=== PATIENT | male | born 1965 | race Caucasian/White ===

== ENCOUNTER 2017-07-17 01:46 | Inpatient (IN) | payer BC ==
[~2017-07-17] VITALS: Ht 172.7 cm; Wt 86.2 kg
[2017-07-17] VITALS (8 sets, daily range): BP systolic 100–128; BP diastolic 62–69; Ht 172.7 cm; Wt 86.2 kg
[2017-07-17 03:56] LABS: BASOPHIL % 0.5 % (0-2); PLATELET COUNT 251 x10^3mcL (130-400); RED CELL DISTRIBUTION WIDTH 13.2 % (11.5-14.5)
[2017-07-17 04:03] LABS: CALCIUM 8.5 mg/dL (8.5-10.1); CARBON DIOXIDE 16.3 mmol/L (21-32); CREATININE SERUM 1.6 mg/dL (0.7-1.3)
[2017-07-17 04:07] LABS: BILIRUBIN TOTAL 0.6 mg/dL (0.20-1.00)
[2017-07-17 04:13] LABS: ALBUMIN 3.2 g/dL (3.4-5.0)
[2017-07-17] MEDS ORDERED: INVOKANA300 MG PO (05:30)
[2017-07-17] MEDS ORDERED: EFFIENT10 M2 PO (05:30)
[2017-07-17] MEDS ORDERED: FLUDROCORTISON0.1 MG PO (05:31)
[2017-07-17] MEDS ORDERED: TOPROL XL25 MG PO (05:31)
[2017-07-17] MEDS ORDERED: ZETIA10 M1 PO (05:31)
[2017-07-17] MEDS ORDERED: IMITREX50 MG PO (05:32)
[2017-07-17] MEDS ORDERED: TOPAMAX25 MG PO ×2 (05:32→05:33)
[2017-07-17] MEDS ORDERED: HUMALOG100 U/ML SC (05:33)
[2017-07-17] MEDS ORDERED: LIPITOR80 MG PO (05:34)
[2017-07-17] MEDS ORDERED: CIALIS5 M1 PO (05:34)
[2017-07-17] MEDS ORDERED: TRULICITY1.5 MG/0.5 SC (05:35)
[2017-07-17 07:12] LABS: microscopic required? NO
[2017-07-17 07:57] LABS: urine erythrocyte NEGATIVE (NEGATIVE)
[2017-07-17 08:16] LABS: AMPHETAMINE QUAL UR NONE DETECTED (NEG <=1000)
[2017-07-17 11:21] LABS: CALCIUM 8.8 mg/dL (8.5-10.1); CARBON DIOXIDE 13.7 mmol/L (21-32); CREATININE SERUM 1.7 mg/dL (0.7-1.3); MAGNESIUM 2.4 mg/dL (1.8-2.4); PHOSPHOROUS 5.6 mg/dL (2.5-4.9); POTASSIUM SERUM 5.2 mmol/L (3.5-5.1)
[2017-07-17 13:19] LABS: CALCIUM 7.5 mg/dL (8.5-10.1); CREATININE SERUM 1.7 mg/dL (0.7-1.3); MAGNESIUM 2.7 mg/dL (1.8-2.4); PHOSPHOROUS 3.6 mg/dL (2.5-4.9); POTASSIUM SERUM 4.3 mmol/L (3.5-5.1)
[2017-07-17 15:37] LABS: T3 TOTAL 0.56 ng/mL
[2017-07-17 15:47] LABS: MAGNESIUM 2.5 mg/dL (1.8-2.4); PHOSPHOROUS 5.7 mg/dL (2.5-4.9)
[2017-07-17 16:06] LABS: FREE T4 1.18 ng/dL (0.76-1.46); FREE THYROXINE INDEX 2.7 ug/dL (1.4-4.5); T4(THYROXINE) 7.2 ug/dL (4.7-13.3)
[2017-07-17 16:31] LABS: CHOLESTEROL/HDL RATIO 2.1
[2017-07-17 17:45] LABS: CALCIUM 7.6 mg/dL (8.5-10.1); CARBON DIOXIDE 25.3 mmol/L (21-32); CREATININE SERUM 1.8 mg/dL (0.7-1.3); MAGNESIUM 2.6 mg/dL (1.8-2.4); PHOSPHOROUS 3.1 mg/dL (2.5-4.9); POTASSIUM SERUM 4.1 mmol/L (3.5-5.1)
[2017-07-17 20:05] LABS: CALCIUM 7.6 mg/dL (8.5-10.1); CARBON DIOXIDE 24.8 mmol/L (21-32); CREATININE SERUM 1.8 mg/dL (0.7-1.3); MAGNESIUM 2.6 mg/dL (1.8-2.4); PHOSPHOROUS 3.2 mg/dL (2.5-4.9); POTASSIUM SERUM 3.8 mmol/L (3.5-5.1)
[2017-07-18] VITALS (10 sets, daily range): BP systolic 107–129; BP diastolic 60–84
[2017-07-18 01:31] LABS: CALCIUM 7.7 mg/dL (8.5-10.1); CARBON DIOXIDE 23.2 mmol/L (21-32); CREATININE SERUM 1.4 mg/dL (0.7-1.3); MAGNESIUM 2.4 mg/dL (1.8-2.4); PHOSPHOROUS 2.7 mg/dL (2.5-4.9); POTASSIUM SERUM 3.4 mmol/L (3.5-5.1)
[2017-07-18 05:19] LABS: BASOPHIL % 0.2 % (0-2); PLATELET COUNT 200 x10^3mcL (130-400); RED CELL DISTRIBUTION WIDTH 13.4 % (11.5-14.5)
[2017-07-19 05:31] VITALS: BP 115/60
[2017-07-19 06:46] LABS: BASOPHIL % 0.4 % (0-2); PLATELET COUNT 178 x10^3mcL (130-400); RED CELL DISTRIBUTION WIDTH 13.2 % (11.5-14.5)
[2017-07-19 06:58] LABS: CALCIUM 7.6 mg/dL (8.5-10.1); CARBON DIOXIDE 25.2 mmol/L (21-32); CHLORIDE SERUM 109 mmol/L (98-107); CREATININE SERUM 0.9 mg/dL (0.7-1.3); GFR1 > 60 mL/min; GLUCOSE SERUM 63 mg/dL (74-106); MAGNESIUM 2.1 mg/dL (1.8-2.4); PHOSPHOROUS 2.8 mg/dL (2.5-4.9); POTASSIUM SERUM 3.7 mmol/L (3.5-5.1); SODIUM SERUM 142 mmol/L (136-145)
[2017-07-19 09:02] VITALS: BP 130/80
[2017-07-19] MEDS ORDERED: LANTUS SOLOS100 U/M1 SQ (11:03)
[2017-07-19 13:55] VITALS: BP 146/93
== END 2017-07-19 14:00 | disposition home or self-care (01) | DRG 637 ==
LOC: ED 01:46 → EDSEX 01:46 → IC 04:34 → DU 08:35
PROVIDERS: Emergency Medicine; Student in an Organized Health Care Education/Training Program
DX: E10.10 Type 1 diabetes mellitus with ketoacidosis without coma (principal); N17.0 Acute kidney failure with tubular necrosis; R65.10 Systemic inflammatory response syndrome (SIRS) of non-infectious origin without acute organ dysfunction; E44.0 Moderate protein-calorie malnutrition; I25.2 Old myocardial infarction; K21.9 Gastro-esophageal reflux disease without esophagitis; I10 Essential (primary) hypertension; E78.5 Hyperlipidemia, unspecified; Z80.9 Family history of malignant neoplasm, unspecified; E86.0 Dehydration; G47.33 Obstructive sleep apnea (adult) (pediatric); E83.39 Other disorders of phosphorus metabolism; E87.5 Hyperkalemia; Z68.29 Body mass index [BMI] 29.0-29.9, adult
CPT/HCPCS: 82962; 83880; 84439; 90732; C9113; J1815; J2270; J2405; J2543; J3490; J7030; Q0092